=== PATIENT | female | born 1965 | race Caucasian/White ===

== ENCOUNTER → 2023-04-29 14:14 | Outpatient (REF) | payer OTHER, SELFPAY | LOC: MRI 3T 14:14 | PROVIDERS: ATTENDING PHYSICIAN Orthopaedic Surgery; FAMILY PHYSICIAN Student in an Organized Health Care Education/Training Program | DX: M54.50 Low back pain, unspecified (principal) | CPT/HCPCS: 72148 ==

== ENCOUNTER 2023-06-03 06:11 | Inpatient (IN) | payer OTHER, SELFPAY ==
--- NOTE | 2023-05-26 09:07 | CM ---
Patient is scheduled for lumbar spine surgery on 06/03/23. Spoke with patient prior to surgery via telephone. Introduced role of the Orthopedic Navigator. Patient reports that she lives with her two children in a two story home. There are no steps to
enter and a flight of steps to the second floor. There is a powder room on the first floor. She currently functions independently. She has her back brace but no other DME. She has never had VN services. PCP is Nichole Townsend.
Discussed orthopedic program, post surgical plans and tentative plan for patient to return home when directed by surgeon. Patient is in agreement with tentative plan and will have support from her children when she goes home.
Plan: Orthopedic Navigator will remain available to assist with the care of patient and will reassess discharge needs after surgery.
[2023-05-28 08:34] VITALS: BMI 31.2
[2023-05-28 09:06] LABS: INR 1.02; PT 13.5 Sec (11.4-14.6)
[2023-05-28 10:32] VITALS: BMI 31.2
[2023-06-03] VITALS (13 sets, daily range): BP systolic 102–132; BP diastolic 58–88
[2023-06-03] MEDS: CELEBREX 200 MG PO (06:43)
[2023-06-03] MEDS: LYRICA 150 MG PO (06:44)
[2023-06-03] MEDS: TYLENOL 1000 MG PO (06:44)
[2023-06-03] MEDS: SKELAXIN 800 MG PO (06:44)
[2023-06-03] MEDS: NORMOSOL-R 1000 IV ×3 (06:45→20:49)
[2023-06-03 12:45] LABS: B.E. - POC -1.6 mmol/L; Glucose - POC 147 mg/dl (65-99); HCO3 - POC 25 mmol/L (21-29); Hematocrit - POC 39 % PCV (37-47); Hemodilution- POC No; Hemoglobin Calculated - POC 13.4; Ionized Calcium - POC 1.15 mmol/L (1.12-1.27); Lactate - POC 1.36 mmol/L (0.36-0.75); O2 Saturation %Calculated-POC 96.7 5 (92-96); PCO2 - POC 46 mmHg (35-45); PO2 - POC 93 mmHg (80-100); Potassium - POC 4.2 mmol/L (3.6-5.0); Sodium - POC 145 mmol/L (135-145); pH - POC 7.34 (7.35-7.45)
--- NOTE | 2023-06-03 17:12 | PTCARENOTE ---
at bedside, pt. with dural tear verbal order to keep flat for 24hours.
--- NOTE | 2023-06-03 17:24 | PTCARENOTE ---
at bedside to look at reddened area on chest and right hip, no new orders obtained, will continue to monitor.
[2023-06-03] MEDS: DILAUDID 0.5 MG IV (17:27)
--- NOTE | 2023-06-03 17:27 | W.PN.UPDATE ---
Update Note
Progress Note Update
Orthopedic surgery update note:
Patient seen in PACU. Waking from anesthesia. Moving feet. Denies any headaches. Drain in place. Patient to remain flat for 24 hours postop. Drain to remain in place to gravity (no suction, do not squeeze canister). No anticoagulants for 24
hours postop. SCDs to bilateral lower extremities. Maintain Aguilar for 24 hours postop. Okay to elevate head of bed to 30 degrees in the morning.
Cecil Acuna, DO
Orthpedic Surgery
--- NOTE | 2023-06-03 19:14 | PTCARENOTE ---
Patient admitted from pacu post L3-L4 decompression and L4-L5 fusion with instrumentation.Patient has a dural tear so she must lay flat for 24 hours.Patient reports her pain at a 2-3 out of 10.The back dressing is intact with the Hemovac.Vital signs
are stable.She also has a small area on her right hip which is pink and blanchable as well as a larger area across her chest which is red to pink .It is blanchable on the right but slower to oliver on the left.The patient is in her bed with the call
reynaga.Her family is also at the bedside.
[2023-06-03] MEDS: LYRICA 75 MG PO (20:41)
[2023-06-03] MEDS: SENOKOT 17.1999999999999993 MG PO (20:41)
[2023-06-03] MEDS: COLACE 100 MG PO (20:41)
[2023-06-03] MEDS: ULTRAM 50 MG PO (20:41)
[2023-06-03] MEDS: TYLENOL PO ×2 (21:08)
[2023-06-03] MEDS: ZOLOFT 200 MG PO (21:38)
[2023-06-03] MEDS: PROTONIX 40 MG PO (21:38)
[2023-06-03] MEDS: ROXICODONE 10 MG PO (21:39)
[2023-06-03] MEDS: ANCEF 5 IV (21:39)
[2023-06-04] VITALS (7 sets, daily range): BP systolic 101–131; BP diastolic 55–80; PULSE 84; O2SAT 95
[2023-06-04] MEDS: TYLENOL PO (00:32)
[2023-06-04] MEDS: NORMOSOL-R 1000 IV (03:15)
[2023-06-04] MEDS: ANCEF 5 IV (04:55)
[2023-06-04] MEDS: TYLENOL 1000 MG PO ×3 (04:56→17:52)
[2023-06-04] MEDS: ROXICODONE 10 MG PO (04:59)
[2023-06-04 06:21] LABS: Hematocrit 33.4 % (37.0-47.0); Hemoglobin 10.8 g/dL (12.0-16.0)
[2023-06-04 07:05] LABS: Blood Urea Nitrogen 14 mg/dl (7-17); Calcium 8.2 mg/dl (8.4-10.2); Carbon Dioxide 24 mmol/L (22-30); Chloride 112 mmol/L (98-107); Estimated Creatinine Clearance 61 ml/min; Glucose 129 mg/dl (70-99); Potassium 4.2 mmol/L (3.5-5.1); Sodium 139 mmol/L (135-145); eGFR 58.24
--- NOTE | 2023-06-04 08:45 | CM ---
Reviewed chart and held rounds with PT, OT and RN. Patient had planned lumbar spine surgery with Dr. Acuna on 06/02. Met with patient at bedside. Confirmed information previously obtained for assessment and discussed discharge plans. Patient
continues to plan to return home at discharge. She will have support from her children when he goes home. Reviewed that she will work with PT/OT when allowed out of bed and that discharge needs will depend on her functional status. However, no needs
currently identified.
Patient has no DME at home.
Patient will use [facility] pharmacy for discharge prescriptions.
[2023-06-04] MEDS: LYRICA 75 MG PO (08:53)
[2023-06-04] MEDS: SENOKOT 17.1999999999999993 MG PO ×2 (08:53→20:31)
[2023-06-04] MEDS: COLACE 100 MG PO ×2 (08:53→20:31)
[2023-06-04] MEDS: ULTRAM 50 MG PO (08:59)
[2023-06-04] MEDS: ROXICODONE 5 MG PO ×3 (11:57→21:58)
--- NOTE | 2023-06-04 16:32 | W.PN.ORTHO ---
Today's Communication / Plan
-
Okay for out of bed in the afternoon today.
Monitor drain output.
Activity as tolerated with PT/OT.
Avoid any bending, lifting or twisting activities.
Discontinue Aguilar
Pain control.
SCDs to bilateral calves.
LSO when ambulatory.
Will continue to monitor
Assessment
.
Dressing:
Clean, dry and intact.
Assessment:
POD 1 status post L3-5 decompression and L4-5 fusion
Plan
.
Activity:
Out of bed.
PT/OT
Subjective
.
.:
Patient seen during rounds today. Resting comfortably in bed. Head of bed elevated 30 degrees. Denies any headaches. Reports some pain in her back. Currently denies any pain in her legs. Drain in place.
Vital Signs and Labs
.
Vital Signs and Labs:
Lab Results
06/04/23 05:42
06/04/23 05:42
Temp Pulse Resp BP Pulse Ox
98.8 F 83 19 131/73 93
06/04/23 15:34 06/04/23 15:34 06/04/23 15:34 06/04/23 15:34 06/04/23 15:34
PT 13.5 Sec (11.4-14.6) 05/28/23 07:08
INR 1.02 05/28/23 07:08
Physical Exam
-
Surgical incision site CDI. Drain in place with 80 cc of serosanguineous fluid drained overnight. Decreased strength in bilateral hip flexors due to pain in back. 5/5 strength in bilateral lower extremities in all other muscle groups. Sensation
intact grossly L2-S1 bilaterally.
--- NOTE | 2023-06-04 21:06 | OR.RPT ---
Operative Report
Operative Report
Orthopedic Surgery Operative Report
Date of Surgery: 06/03/23
PREOPERATIVE DIAGNOSES:
1. Lumbar spinal stenosis with radiculopathy, L3-L5
2. Lumbar spondylolisthesis, L4-L5
3. Lumbar back pain
POSTOPERATIVE DIAGNOSES:
1. Lumbar spinal stenosis with radiculopathy, L3-L5
2. Lumbar spondylolisthesis, L4-L5
3. Lumbar back pain
PROCEDURE PERFORMED:
1. L4-L5 transforaminal lumbar interbody fusion, L4-5 posterolateral fusion
2. L4-L5 posterior instrumentation
3. L4-L5 additional posterior decompression due to spinal stenosis
4. L3-4 decompression
5. Placement of interbody cage at L4-L5
6. Use of autograft
7. Use of allograft
SURGEON: Cecil Acuna D.O.
COORDINATOR OF REHABILITATION SERVICES: TRUONG Vega, who helped with patient and limb positioning and retraction
ANESTHESIA: General endotracheal
COMPLICATIONS: Dural tear- repaired intraoperatively
ESTIMATED BLOOD LOSS: 200 cc
DRAINS: Hemovac (to gravity)
SPECIMEN: None
IMPLANTS:
All Globus implants
L4 screws- 5.5 x 40 (x2)
L5 screws- 5.5 x 40 (x2)
L4-L5 cage- 10 x 26, 6-12 degree expandable cage (sable)
55 mm tomás on left
45 mm tomás on right
INDICATION FOR SURGERY: This patient has an ongoing history of low back pain and bilateral lower extremity radiculopathy. Evaluation shows that she has the aforementioned diagnoses. She has failed extensive nonsurgical treatment. She has elected to
undergo the aforementioned surgical procedures. The risks, benefits, alternatives, and indications were discussed with the patient in detail. The risks include, but are not limited to bleeding requiring transfusion, infection, need for reoperation,
nerve or blood vessel damage, anesthetic risks, need for further surgery, continued pain, blood clots in the legs, heart attack, stroke, , dural tear, nerve root injury, graft migration, instrumentation failure, pseudoarthrosis, continued pain,
continued numbness, continued weakness, paralysis. The patient understands the risks and elected to proceed. Informed consent was obtained preoperatively. The patient was optimized medically prior to surgery.
PROCEDURE IN DETAIL: The patient was identified in the preoperative holding area. The surgical site was appropriately marked. The patient was then brought to the operating room. General endotracheal anesthesia was achieved. The patient was
given routine preoperative intravenous antibiotics. The patient was turned to the prone position. Great care was taken to pad and protect all extremities and pressure points. The incision site was marked using fluoroscopy. The patient was prepped
and draped in the usual sterile manner. A preoperative surgical time-out was taken.
A standard midline approach to the lumbar spine was performed. The dissection was carried out to the spinal lamina. Dissection was then carried out laterally to expose the transverse processes of L4 and L5 bilaterally. The entry point for the
screws were identified. Bilateral L4 and L5 transverse processes were decorticated. Bilateral L4 and L5 pedicle screws were placed under fluoroscopic guidance as follows: The entry point for the first screw was identified anatomically. It was
entered using high-speed jim. A pedicle finder was carefully advanced. The position was confirmed on fluoroscopy. A ball-tipped probe was used to confirm the pathway. An appropriate size tap was then placed. A ball-tipped probe reconfirmed the
pathway. An appropriate size screw was then placed. The same procedure was performed for each screw. All screws had appropriate fixation. Fluoroscopy confirmed appropriate position of all instrumentation. Triggered spinal cord monitoring EMG
was also used to confirm appropriate position of all instrumentation.
We now proceeded with the decompression. Attention was first turned to the L4-5 level. Laminectomy was carried out. The hypertrophic ligamentum flavum was removed. A right foraminotomy was carried out and a left facetectomy was carried out. The
disc space was exposed on the left. Next, attention was turned to the L3-4 level. A laminectomy was carried out and the ligamentum flavum was resected. While performing the decompression at L3, a dural tear was encountered. This was repaired using
5-0 gore-elise suture. A Valsalva maneuver was performed and held at 40mmHg- no CSF was found to leak. Remainder of the ligament flavum was then removed and foraminotomies were carried out. Once the decompression was completed, attention was turned to
cage placement. The thecal sac and exiting nerve root were retracted to expose the disc space at L4-5. The disc space was then prepared under fluoroscopic guidance. The disc space was copiously irrigated. Bone graft (autograft) was inserted into the
disc space. A cage of adequate size was then inserted and expanded under fluoroscopic guidance. Additional flowable bone graft was then placed into the cage and disc space. Rods of appropriate length were chosen and applied to the screws. Set screws
were applied. Set screws were final tightened. The surgical site was copiously irrigated.
The posterolateral fusion from L4-L5 was performed next. Bone was decorticated posterolaterally and bone graft (autograft and allograft) was applied at this site (right L4-5 facet and bilateral intertransverse spaces).
The decompression site was reexamined and found to be widely patent. Attention was once again turned to the repaired dural tear site. Duragen was applied to the tear site. The site was additionally sealed using surgicel and Duraseal. Another
Valsalva maneuver was performed and held at 40 mmHg for 10 seconds. No CSF was found to leak. A deep drain was placed (this would be held to gravity and not suction). The muscle was approximated using vicryl suture. Fascia was closed using #1
stratafix suture. 1 gram vancomycin powder was placed. The deep and superficial subcutaneous tissues were closed using vicryl suture. Skin was approximated with eusebio. Sterile dressing was applied. The drain was sutured in placed. The patient was
turned to the supine position and awoken from anesthesia. The patient tolerated the procedure well with no immediate complications.
Throughout the surgery, spinal cord monitoring including SSEPs and EMGs were used. All counts were correct at the end of the surgery.
Cecil Acuna D.O.
Orthopedic Surgery
[2023-06-04] MEDS: ZOLOFT 200 MG PO (21:56)
[2023-06-04] MEDS: PROTONIX 40 MG PO (21:57)
[2023-06-04] MEDS: MYLICON 80 MG PO (22:27)
[2023-06-05] MEDS: TYLENOL PO
[2023-06-05 06:00] VITALS: BMI 31.5
[2023-06-05] MEDS: TYLENOL 1000 MG PO ×3 (06:30→17:03)
[2023-06-05 08:00] VITALS: BP 134/77
[2023-06-05] MEDS: ROXICODONE 10 MG PO (08:12)
[2023-06-05] MEDS: SENOKOT 17.1999999999999993 MG PO ×2 (08:12→19:22)
[2023-06-05] MEDS: COLACE 100 MG PO ×2 (08:12→19:21)
[2023-06-05] MEDS: MYLICON 80 MG PO (08:12)
[2023-06-05 09:47] LABS: Urine Albumin Trace (Neg - Trace); Urine Bilirubin 1+ (Negative); Urine Character Clear (Clear); Urine Color Yellow; Urine Glucose Negative (Negative); Urine Ketone Negative (Negative); Urine Leukocyte 1+ (Negative); Urine Nitrite Negative (Negative); Urine Occult Blood Negative (Negative); Urine Urobilinogen Negative (Neg - 1+)
[2023-06-05 09:49] LABS: % Basophils 0.1 % (0-2); % Eosinophils 0.2 % (0-6); % Immature Granulocytes 0.6 % (0-0.5); % Lymphocytes 10.5 % (20.5-51.1); % Monocytes 6.1 % (1.7-9.3); % Neutrophils 82.5 % (42.2-75.2); Absolute Immature Granulocytes 0.1 10^3/uL (0-0.05); Absolute Lymphocytes 1.5 10^3/uL (1.2-3.4); Absolute Monocytes 0.8 10^3/uL (0.1-0.6); Absolute Neutrophils 11.5 10^3/uL (1.4-6.5); Hematocrit 31.2 % (37.0-47.0); Hemoglobin 10.5 g/dL (12.0-16.0); Mean Corp Hgb Conc. 33.7 g/dL (33.0-37.0); Mean Corpuscular Hgb 29.2 pg (27.0-31.0); Mean Corpuscular Volume 86.7 fL (81.0-99.0); Mean Platelet Volume 10.5 fL (7.4-10.4); Nucleated Red Blood Cells % 0 %; Platelet Count 212 10^3/uL (130-400); White Blood Cell Count 13.9 10^3/uL (4.8-10.8)
[2023-06-05 10:38] LABS: Urine Squamous Cell >30 /LPF (Few)
[2023-06-05 10:39] LABS: Urine Bacteria Moderate (Negative); Urine Red Blood Cell 0-2 /HPF (0-2); Urine White Cell 26-30 /HPF (0-5)
--- NOTE | 2023-06-05 11:29 | CM ---
Addendum entered by TERRI Veliz 06/05/23 15:32:
NO discharge today. Therapy recommended home RN< PT OT and CLINICIAN ONCOLOGY. Spoke to patient and her son/dgtr who have no preference for home care agency. Sent referral in allscripts to [facility] to see if they accept patient's insurance. PT requesting patient
get a rolling walker. Unable to use DME company at . Order to be sent to [facility]. Spoke to Ben from [facility] who will deliver to tomorrow.
Script and PT, OT notes and Face sheet to be faxed to [facility] at fax. [phone] to june.
Original Note:
Reviewed chart and held rounds with PT, OT and RN. Patient had planned lumbar spine surgery with Dr. Acuna on 06/02. Met with patient at bedside. Confirmed information previously obtained for assessment and discussed discharge plans. Patient
continues to plan to return home at discharge. She will have support from her children when he goes home. Reviewed that she will work with PT/OT today and that discharge needs will depend on her functional status. However, no needs currently
identified.
Patient has no DME at home.
Patient will use [facility] pharmacy for discharge prescriptions.
[2023-06-05 12:00] VITALS: BP 124/71
[2023-06-05 13:00] VITALS: BP 130/62; BP 133/81; PULSE 60; O2SAT 97
--- NOTE | 2023-06-05 13:09 | W.PN.ORTHO ---
Today's Communication / Plan
-
Activity as tolerated with PT/OT.
Avoid any bending, lifting or twisting activities.
Pain control.
SCDs to bilateral calves.
LSO when ambulatory.
Discharge planning when cleared PT
She will follow-up in clinic in 2 weeks for postoperative visit
Assessment
.
Dressing:
Clean, dry and intact.
Assessment:
Postop day 2 status post L3-L5 decompression and L4-L5 fusion
Plan
.
Activity:
Out of bed.
PT/OT
Subjective
.
.:
Patient seen and examined during rounds today. Resting comfortably in bedside chair. She does finish physical therapy. She was ambulatory in the hallway and did stairs. Denies any headaches. Currently reports resolution of the radicular pain in
her legs. Drain was removed today.
Vital Signs and Labs
.
Vital Signs and Labs:
Lab Results
06/05/23 09:41
06/04/23 05:42
Temp Pulse Resp BP Pulse Ox
99.6 F 89 17 124/71 97
06/05/23 12:00 06/05/23 12:00 06/05/23 12:00 06/05/23 12:00 06/05/23 12:00
PT 13.5 Sec (11.4-14.6) 05/28/23 07:08
INR 1.02 05/28/23 07:08
Physical Exam
-
Surgical incision site CDI. Decreased strength in bilateral hip flexors due to pain in back. 5/5 strength in bilateral lower extremities in all other muscle groups. Sensation intact grossly L2-S1 bilaterally.
--- NOTE | 2023-06-05 13:33 | W.PN.ORTHO ---
Documented by User: Esthela Chun PA-C 06/05/23 14:08
Today's Communication / Plan
-
d/c in am if stable
Assessment
.
Distal Motor Intact: Yes
Dressing:
Clean, dry and intact.
Assessment:
Dural tear-s/p bedrest
Fever-likely typical post-op response-CBC with mild white count elevation due to steroid-u/a questionable with culture pending--patient is asymptomatic with no clinical findings on exam-will d/c on Cefadroxil prophylactically and follow culture
Plan
.
Surgery / Date: L3-4-[address] Sotelo 06/03/23
Activity:
Out of bed.
PT/OT
Discharge Plan: Home w/ VN
Subjective
.
.:
Patient resting comfortably.
Vital Signs and Labs
.
Vital Signs and Labs:
Lab Results
06/05/23 09:41
06/04/23 05:42
Temp Pulse Resp BP Pulse Ox
99.6 F 89 17 124/71 97
06/05/23 12:00 06/05/23 12:00 06/05/23 12:00 06/05/23 12:00 06/05/23 12:00
PT 13.5 Sec (11.4-14.6) 05/28/23 07:08
INR 1.02 05/28/23 07:08
Physical Exam
-
HEENT: No pallor, cyanosis, or jaundice. Throat clear.
NECK: Supple. No JVD.
RESPIRATORY: Lungs clear to auscultation.
CVS: S1, S2 normal. RRR.� No murmur, rub or gallop.
ABDOMEN: Soft, non-tender. No distension. BS+/normal.
EXTREMITIES: strength equal, no calf pain with palpation
REAL ESTATE OFFICER: AOx3. No focal deficits. hospital staff pharmacist grossly intact

Documented by User: Cecil Acuna DO 06/06/23 13:21
Plan
.
Surgery / Date: S/p L3-5 decompression with L4-5 fusion
[2023-06-05 13:41] VITALS: BP 133/81; PULSE 95
--- NOTE | 2023-06-05 14:13 | W.DS.TRANS ---
DC Summary - Informatics Application Analyst
-
Discharge Instructions:
Sleep Apnea Risk Intermediate
Discharge Diagnosis/Procedures L3-4-[address] Sotelo 06/03/23
Diet As tolerated
Activity With Walker,No strenuous activity
Driving Restrictions No driving
Other Services VN,PT
Instructions:
Stand-Alone Forms: [facility] Lumbar Spine DC Instr
Changes to Home Medications: Yes
Discharge Medications:
DC Medications w/original date entered in [employer]
amlodipine 5 mg tablet 5 mg PO BID Blood Pressure 01/04/22
lansoprazole 30 mg capsule,delayed release 30 mg PO HS Gastrointestinal Issue 01/04/22
sertraline 100 mg tablet 200 mg PO HS Mental Health/Anxiety 01/04/22
cholecalciferol (vitamin D3) 125 mcg (5,000 unit) tablet (Vitamin D3) 125 mcg PO DAILY Supplement 05/27/23
fluticasone propionate 50 mcg/actuation nasal spray,suspension 1 spray intranasal DAILY Congestion 05/27/23
potassium chloride 15 mEq tablet,extended release(part/cryst) 15 meq PO BID Electrolyte Repletion 05/27/23
propranolol 20 mg tablet 20 mg PO HS Blood Pressure 05/27/23
Saccharomyces boulardii 250 mg capsule (Florastor) 250 mg PO BID #1 cap 06/05/23
acetaminophen 325 mg capsule (Tylenol) 650 mg (2 x 325 mg) PO QID #2 caps 06/05/23
cefadroxil 500 mg capsule 500 mg PO BID infection prevention #14 caps 06/05/23
cyclobenzaprine 5 mg tablet 5 mg PO BID muscle pain/sleep #30 tabs 06/05/23
dexamethasone 4 mg tablet 4 mg PO BID inflammation #6 tabs 06/05/23
docusate sodium 100 mg capsule (Colace) 100 mg PO BID stool softner #1 cap 06/05/23
gabapentin 300 mg capsule 300 mg PO HS sleep/pain #10 caps 06/05/23
magnesium hydroxide 400 mg/5 mL oral suspension (Milk of Magnesia) 30 ml PO HS PRN Constipation #1 mL 03/28/24
oxycodone 5 mg tablet 5 mg PO Q6H PRN 1 tab moderate pain, 2 tabs severe pain #30 tabs 06/05/23
sennosides 8.6 mg tablet (Senokot) 17.2 mg (2 x 8.6 mg) PO BID laxative #2 tabs 06/05/23
Home Medication Changes
cefadroxil 500 mg capsule 500 mg PO BID infection prevention #14 caps 06/05/23
cyclobenzaprine 5 mg tablet 5 mg PO BID muscle pain/sleep #30 tabs 06/05/23
dexamethasone 4 mg tablet 4 mg PO BID inflammation #6 tabs 06/05/23
gabapentin 300 mg capsule 300 mg PO HS sleep/pain #10 caps 06/05/23
oxycodone 5 mg tablet 5 mg PO Q6H PRN 1 tab moderate pain, 2 tabs severe pain #30 tabs 06/05/23
Pending Results: No
[2023-06-05] MEDS: STERILE WATER FOR INJECTION 10 ML IV (14:42)
[2023-06-05] MEDS: ROCEPHIN 1000 MG IV (14:43)
[2023-06-05 16:00] VITALS: BP 126/74
[2023-06-05] MEDS: PROTONIX 40 MG PO (19:23)
[2023-06-05] MEDS: ZOLOFT 200 MG PO (21:26)
[2023-06-05] MEDS: NEURONTIN 300 MG PO (21:27)
[2023-06-05 23:04] VITALS: BP 132/70
[2023-06-06] MEDS: TYLENOL PO ×2 (00:22→06:52)
[2023-06-06 07:39] VITALS: BP 130/81
[2023-06-06] MEDS: ROXICODONE 5 MG PO (07:57)
[2023-06-06] MEDS: SENOKOT PO (08:00)
[2023-06-06] MEDS: TYLENOL 1000 MG PO (08:01)
[2023-06-06] MEDS: COLACE PO (08:01)
--- NOTE | 2023-06-06 09:47 | CM ---
Addendum entered by TERRI Veliz 06/06/23 10:43:
Met patient and adult child in room to review [facility] home care services and that rolling walker to be delivered to her room today.
[facility] Fax for d/c instructions: [phone]
Original Note:
Reviewed chart and held rounds with PT, OT and RN. Patient had planned lumbar spine surgery with Dr. Acuna on 06/02. Met with patient at bedside. Confirmed information previously obtained for assessment and discussed discharge plans. Patient
continues to plan to return home at discharge. She will have support from her children when she goes home. Reviewed that she will work with PT/OT today and that discharge needs will depend on her functional status.
At this time still waiting for [facility] to confirm they can accept referral for home RN, PT, OT and GALVANOMETER ASSEMBLER.
Rolling walker script and documentation faxed to Geraldine's attention at [facility]. Ben at [facility] confirms receipt of paperwork. He will deliver rolling walker to patient's room.
Patient will use [facility] pharmacy for discharge prescriptions.
--- NOTE | 2023-06-06 09:56 | W.PN.ORTHO ---
Today's Communication / Plan
-
d/c
Assessment
.
Distal Motor Intact: Yes
Dressing:
Clean, dry and intact.
Assessment:
Dural tear-s/p bedrest
Fever-likely typical post-op response-CBC with mild white count elevation due to steroid-u/a questionable with culture negative--patient is asymptomatic with no clinical findings on exam-will d/c on Cefadroxil prophylactically
--fever improved today
Plan
.
Surgery / Date: L3-4-[address] Sotelo 06/03/23
Activity:
Out of bed.
PT/OT
Discharge Plan: Home w/ VN
Subjective
.
.:
Patient resting comfortably.
Vital Signs and Labs
.
Vital Signs and Labs:
Lab Results
06/05/23 09:41
06/04/23 05:42
Temp Pulse Resp BP Pulse Ox
99.8 F 105 16 130/81 97
06/06/23 07:39 06/06/23 07:39 06/06/23 07:39 06/06/23 07:59 06/06/23 07:39
PT 13.5 Sec (11.4-14.6) 05/28/23 07:08
INR 1.02 05/28/23 07:08
Physical Exam
-
HEENT: No pallor, cyanosis, or jaundice. Throat clear.
NECK: Supple. No JVD.
RESPIRATORY: Lungs clear to auscultation.
CVS: S1, S2 normal. RRR.� No murmur, rub or gallop.
ABDOMEN: Soft, non-tender. No distension. BS+/normal.
EXTREMITIES: strength equal, no calf pain with palpation
MINER PICK: AOx3. No focal deficits. nick setter grossly intact
== END 2023-06-06 12:30 | disposition home health service (06) | DRG 454 ==
LOC: 2 SOUTH 06:11
PROVIDERS: Physician Assistant Medical; ADMITTING PHYSICIAN Orthopaedic Surgery; FAMILY PHYSICIAN Student in an Organized Health Care Education/Training Program
PROC: 0SG1071 Fusion of 2 or more Lumbar Vertebral Joints with Autologous Tissue Substitute, Posterior Approach, Posterior Column, Open Approach (ICD-10-PCS; 2023-06-03)
PROC: 01NB0ZZ Release Lumbar Nerve, Open Approach (ICD-10-PCS; 2023-06-03)
PROC: 00U20KZ Supplement Dura Mater with Nonautologous Tissue Substitute, Open Approach (ICD-10-PCS; 2023-06-03)
PROC: 0SG00AJ Fusion of Lumbar Vertebral Joint with Interbody Fusion Device, Posterior Approach, Anterior Column, Open Approach (ICD-10-PCS; 2023-06-03)
DX: M48.061 Spinal stenosis, lumbar region without neurogenic claudication (principal); G97.41 Accidental puncture or laceration of dura during a procedure; M51.16 Intervertebral disc disorders with radiculopathy, lumbar region; M43.16 Spondylolisthesis, lumbar region; Y83.8 Other surgical procedures as the cause of abnormal reaction of the patient, or of later complication, without mention of misadventure at the time of the procedure
CPT/HCPCS: 36415; 72100; 76000; 80048; 81003; 81015; 85014; 85018; 85025; 85610; 86850; 86900; 86901; 87070; 87086; 93005; 97116; 97162; 97167; 97530; 97535; C1713; C1729; C1763; C1776

== ENCOUNTER → 2023-11-28 08:24 | Outpatient (REF) | payer OTHER, SELFPAY | LOC: RAD 08:24 | PROVIDERS: ATTENDING PHYSICIAN Specialist; FAMILY PHYSICIAN Student in an Organized Health Care Education/Training Program | DX: N20.0 Calculus of kidney (principal) | CPT/HCPCS: 74018 ==